=== PATIENT | male | born 1955 | race Asian ===

== ENCOUNTER 2020-03-25 18:54 | Emergency (ER) | payer BC ==
[~2020-03-25] VITALS: Ht 177.8 cm; Wt 85.3 kg
[2020-03-25 19:25] VITALS: BP_SYST 124
--- NOTE | 2020-03-25 19:25 | NUR ---
Brown colored urine since Wednesday. Guin dizzy earlier. 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 pt states that he drinks coffee and plenty of water. Pt s/p back sx for pinched nerve on 01/09/2020.
[2020-03-26 08:48] LABS: BASOPHILS % (AUTO) 0.6 % (0.0-2.0); EOSINOPHILS # (AUTO) 0.2 K/uL (0.0-0.4); EOSINOPHILS % (AUTO) 2.2 % (0.0-4.0); HEMOGLOBIN 13.8 g/dL (14.0-18.0); LYMPHOCYTES # (AUTO) 2.9 K/uL (1.0-5.5); LYMPHOCYTES % (AUTO) 40.8 % (20.5-51.5); MEAN CORPUSCULAR HEMOGLOBIN 34 pg (27-31); MEAN CORPUSCULAR HGB CONC 35 % (32-36); MEAN CORPUSCULAR VOLUME 99 fL (79.0-98.0); MONOCYTES # (AUTO) 0.6 K/uL (0.0-1.0); MONOCYTES % (AUTO) 8.3 % (1.7-9.3); NEUTROPHILS # (AUTO) 3.5 K/uL (1.8-7.7); NEUTROPHILS % (AUTO) 48.1 % (40.0-70.0); PLATELET COUNT (AUTO) 247 K/uL (130-430); RED BLOOD CELL COUNT(AUTO) 4.02 MIL/uL (4.2-6.2); RED CELL DISTRIBUTION WIDTH 13.1 % (9.0-15.0); WHITE BLOOD COUNT (AUTO) 7.2 K/uL (4.8-10.8)
[2020-03-26 13:58] LABS: CALCIUM 8.8 mg/dL (8.4-11.0); POTASSIUM 3.8 mmol/L (3.5-5.1)
[2020-03-26 13:59] LABS: ALBUMIN 4.1 g/dL (3.4-4.8); CREATININE 0.99 mg/dL (0.55-1.30); TOTAL BILIRUBIN 0.6 mg/dL (0.0-1.0)
[2020-03-26 14:34] LABS: CLARITY/URINE CLOUDY (CLEAR); COLOR,URINE AMBER (YELLOW)
[2020-03-26 14:35] LABS: BILIRUBIN,URINE 2+ (NEGATIVE); BLOOD, URINE 3+ (NEGATIVE); GLUCOSE,URINE 0 (NEGATIVE); KETONES,URINE TRACE (NEGATIVE); LEUKOCYTE ESTERASE ,URINE NEGATIVE (NEGATIVE); NITRITE, URINE NEGATIVE (NEGATIVE); PROTEIN URINE 2+ (NEGATIVE)
[2020-03-26 14:38] LABS: BACTERIA,URINE None Seen /HPF (None Seen); RBC,URINE >100 /HPF (0-3); WBC,URINE NONE SEEN /HPF (0-3)
== END 2020-03-25 22:08 | disposition home or self-care (01) ==
LOC: SED 18:54
DX: R82.90 Unspecified abnormal findings in urine (principal)
CPT/HCPCS: 36415; 80053; 81000-TC; 82550-TC; 85025; 99283